=== PATIENT | female | born 1955 | race Caucasian/White ===

== ENCOUNTER → 2017-09-26 | Outpatient (CLI) | payer MEDICAID ==
[~2017-09-26] MED LIST: IOPAMIDOL (ISOVUE-300) 100 ML BTL ONE
== END ==
LOC: FIMAGING 10:10
DX: R27.8 Other lack of coordination (principal); F25.9 Schizoaffective disorder, unspecified; F31.9 Bipolar disorder, unspecified; N18.3 Chronic kidney disease, stage 3 (moderate); M62.81 Muscle weakness (generalized); I67.82 Cerebral ischemia
CPT/HCPCS: Q9967